=== PATIENT | female | born 1950 | race Caucasian/White ===

== ENCOUNTER → 2017-05-11 | Outpatient (CLI) | payer MEDICARE, OTHER ==
[~2017-05-11] MED LIST: DILANTIN PO; ESCITALOPRAM OX10 MG PO; HYDROCODON-ACE1 EAC7 PO; KEFLEX500 MG PO; KEPPRA500 MG PO; LEXAPRO20 MG PO; PHENYTOIN SODI100 M4 PO; VICODIN 5/1 TAB 5/50 PO
--- NOTE | ~2017-05-11 | CT55 ---
[facility] A Service of [facility] RADIOLOGY TEXT RESULTS PATIENT: SHAHIDA TORRES [facility] : 50 UNIT #: [id number] AGE: [address]: Juan Ramon Julien MD SEX: F ORDER DR: [id number] [facility]. [place], [place] [address] [id number] O MR#: [id number] Acc #: [id number] NAME: SHAHIDA TORRES : 1950 SEX: F STUDY DATE/TIME: 05/11/2017 9:58 UNIT: CCAT ROOM: STUDY DESCRIPTION: CT Chest W Con Attending Physician: Juan Ramon Julien M.D. Referring Physician: Juan Ramon Julien M.D. Ordering Physician: Juan Ramon Julien M.D. Primary Care Physician: Rashid Camacho M.D. MEDICAL IMAGING REPORT This report is preliminary unless electronic signature is present EXAM CT chest with contrast. INDICATION Restaging breast cancer. Observation for response to therapy and metastatic disease. PROCEDURE Contrast-enhanced CT chest. This CT exam was performed with one or more of the following radiation dose reduction techniques: automatic exposure control, adjustment of mA and/or kV according to patient size, and iterative reconstruction. COMPARISON 11/03/2016 FINDINGS No adenopathy. Previous left mastectomy. Bilateral pulmonary nodules are stable to slightly smaller. An index nodule in the right upper lobe measures 10 mm, previously up to 11 mm. No new nodules are seen. No aggressive appearing bone lesion. IMPRESSION 1. Small pulmonary nodules in both lungs are stable to minimally decreased. No evidence for disease progression. 2. Refer to the separately dictated abdomen and pelvis CT for abdominal findings. Dictated by... Stephen Long M.D. [facility] A Service [facility] RADIOLOGY TEXT RESULTS PATIENT: SHAHIDA TORRES LOCATION: [facility] : 50 UNIT #: [id number] AGE: [address]: Juan Ramon Julien MD SEX: F ORDER DR: THIS IS AN ELECTRONICALLY VERIFIED REPORT Stephen Long M.D. at 05/12/2017 7:07 AM HARLEEN/erika TD: 05/11/2017 14:13 JOB #: [id number] MEDICAL IMAGING REPORT Page 1 of 1 COPY
--- NOTE | ~2017-05-11 | CT5 ---
[facility] A Service of [facility] RADIOLOGY TEXT RESULTS PATIENT: SHAHIDA TORRES LOCATION: [facility] : 50 UNIT #: [id number] AGE: [address]: Juan Ramon Julien MD SEX: F ORDER DR: [id number] [facility] [address] [facility]. [place], [place] [address] [id number] O MR#: [id number] Acc #: [id number] NAME: SHAHIDA TORRES : 1950 SEX: F STUDY DATE/TIME: 05/11/2017 9:58 UNIT: CCAT ROOM: STUDY DESCRIPTION: CT Abdomen W Cont Attending Physician: Juan Ramon Julien M.D. Referring Physician: Juan Ramon Julien M.D. Ordering Physician: Juan Ramon Julien M.D. Primary Care Physician: Rashid Camacho M.D. MEDICAL IMAGING REPORT This report is preliminary unless electronic signature is present EXAM CT abdomen with contrast. INDICATION Breast cancer restaging, observation for metastatic disease. PROCEDURE Contrast-enhanced CT of the abdomen. This CT exam was performed with one or more of the following radiation dose reduction techniques: automatic exposure control, adjustment of mA and/or kV according to patient size, and iterative reconstruction. COMPARISON 11/03/2016 FINDINGS Refer to the separately dictated chest CT for thoracic findings. Hypervascular lesion subcapsular segment 2 is stable and measures 9 mm. No new liver lesion. The spleen, adrenal glands, pancreas unremarkable. Previous cholecystectomy. Small hiatal hernia. The bowel loops are nondilated. Sclerotic lesion in the left ilium measures 1.4 cm and is unchanged. It is nonspecific. No new bone lesion. IMPRESSION No evidence for disease progression in the abdomen. Small hypervascular liver lesions are unchanged. Other incidental findings detailed above. Dictated by... Stephen Long M.D. [facility] A Service of [facility] RADIOLOGY TEXT RESULTS PATIENT: SHAHIDA TORRES LOCATION: [facility] : 50 UNIT #: [id number] AGE: [address]: Juan Ramon Julien MD SEX: F ORDER DR: THIS IS AN ELECTRONICALLY VERIFIED REPORT Stephen Long M.D. at 05/12/2017 7:07 AM HARLEEN/erika TD: 05/11/2017 14:24 JOB #: [id number] MEDICAL IMAGING REPORT Page 1 of 1 COPY
[2017-05-11 09:55] LABS: POC - CREATININE 0.83 mg/dL (0.44-1.03); POC - GFR >60.0 mL/min (>60)
== END | disposition home or self-care (01) ==
LOC: CCAT 08:30
PROVIDERS: Internal Medicine Hematology & Oncology
DX: C50.412 Malignant neoplasm of upper-outer quadrant of left female breast (principal); C78.7 Secondary malignant neoplasm of liver and intrahepatic bile duct; C78.00 Secondary malignant neoplasm of unspecified lung; F10.96 Alcohol use, unspecified with alcohol-induced persisting amnestic disorder; R91.8 Other nonspecific abnormal finding of lung field; K76.9 Liver disease, unspecified
CPT/HCPCS: 71260; 74160; 82565; Q9967